=== PATIENT | female | born 1940 | race African-American/Black ===

== ENCOUNTER → 2016-12-26 | Outpatient (CLI) | payer MEDICARE, OTHER ==
[~2016-12-26] MED LIST: ASPIRIN 81M81 MG/TA2 PO; B COMPLEX1 TA2 PO; GLUCOPHAGE500 MG/TAB PO; GLYNASE 3MG3 MG/TAB PO; LIPITOR20 MG PO; PRIL40 PO; SINGULAIR 110 MG/TAB PO; TOPROL XL100 MG PO; VERELAN240 MG PO; ZYLOPRIM 100MG100 MG PO; ZYRTEC 10MG10 MG PO
== END ==
LOC: MC.RAD 12-19 11:20
DX: Z12.31 Encounter for screening mammogram for malignant neoplasm of breast (principal)

== ENCOUNTER → 2018-03-12 | Outpatient (CLI) | payer MEDICARE, OTHER | LOC: MC.RAD 09:48 | DX: Z12.31 Encounter for screening mammogram for malignant neoplasm of breast (principal) ==

== ENCOUNTER → 2019-03-18 | Outpatient (CLI) | payer MEDICARE, OTHER | LOC: MC.RAD 10:53 | DX: Z12.31 Encounter for screening mammogram for malignant neoplasm of breast (principal) ==

== ENCOUNTER → 2019-05-22 | Outpatient (CLI) | payer MEDICARE, OTHER | LOC: COL.RAD 09:31 | DX: N95.0 Postmenopausal bleeding (principal); D25.9 Leiomyoma of uterus, unspecified ==

== ENCOUNTER → 2019-07-25 | Outpatient (CLI) | payer MEDICARE, OTHER ==
--- NOTE | 2019-07-25 15:15 | NUR ---
patient in CT. attempts have been made to establish vascular access for procedure. With venous assessment very limited means for attempting to establish this procedure. Patient reported that she is frustrated with the process. Patient does not want to be stuck unless I will be 100 percent successful. There is very limited means for even attempting and IV start. Exam will be done without contrast injection.
== END ==
LOC: COL.RAD 12:43 → EDBD 12:43 → COL.RAD 13:00
DX: R10.32 Left lower quadrant pain (principal)

== ENCOUNTER → 2020-03-24 | Outpatient (CLI) | payer MEDICARE, OTHER | LOC: MC.RAD 11:45 → EDBD 11:51 | DX: Z12.31 Encounter for screening mammogram for malignant neoplasm of breast (principal) ==

== ENCOUNTER → 2023-06-21 | Outpatient (CLI) | payer MEDICARE, OTHER | LOC: CANSCHCLI → MC.RAD 10:43 → EDBD 10:43 → COL.RAD 10:45 → MC.RAD 10:45 | DX: Z12.31 Encounter for screening mammogram for malignant neoplasm of breast (principal) ==

== ENCOUNTER → 2024-08-14 | Outpatient (CLI) | payer MEDICARE | LOC: MC.RAD 10:53 | DX: Z12.31 Encounter for screening mammogram for malignant neoplasm of breast (principal) ==